=== PATIENT | male | born 1950 | race Caucasian/White ===

== ENCOUNTER 2017-03-09 16:50 | Observation (INO) | payer BC, OTHER, MEDICARE ==
--- NOTE | ~2017-03-09 | HP ---
History And Physical [place] [id number] [facility] [place]. [address] NAME: OMA RAMIREZ SR : 49 STATUS : ADM David PAT#: [id number] AGE: 67 ADM/REG DATE : 03/09/17 MR#: [id number] REPORT SERV DATE: 03/10/17 DICTATED BY: STEPHANIE SANCHEZ DATE: 03/10/17 REPORT STATUS : Draft TRANSCRIBED BY: MADDIE DATE: 03/10/17 DATE OF ADMISSION: 03/09/2017 PRIMARY BALL RACKER: Marcin Thompson M.D. CHIEF COMPLAINT: Chest pain and jaw pain. HISTORY OF PRESENT ILLNESS: This is a 67-year-old male with a history of coronary artery bypass grafting in 1992 and approximately five stents since that time. He had typical anginal pain yesterday afternoon. It occurred without relation to exertion and is described as pain in the gums and jaw from the ears down and as well as brief chest pains on the right and left side described as a "polanco." He left work at that time, and his met him on the road and they came to our Emergency Department. He waited in our ER several hours until he was seen and the pain had mostly resolved after approximately 3 hours. Currently, he is chest pain-free. The patient denies any other recent anginal episodes. He does not have a recurrent refill for nitroglycerin. He has had no recent increased shortness of breath nor has he had any PND or orthopnea. Denies any palpitations or presyncope. Occasional lower extremity edema at the end of the day. The patient's recent medical history is significant for sustaining a fall off a ladder on 03/08/2017 with some muscular injuries on the right neck and also right side of the back. He saw [facility] and they performed multiple x-rays, then started him on the steroid Dosepak. He has been taken two days worth of this dose pack and states some improvement in his musculoskeletal pain. He has been instructed not to exercise at this time and he has been set up to follow up with Physical Therapy. The patient denies any recent fever, cough, or chills. MEDICAL HISTORY: 1. Coronary artery disease, status post CABG in 1992 with a history of stents to the left circumflex, LAD, and most recently in the left main and LAD in 2011. Most recent nuclear stress test was in 02/2015, which indicated no ischemia. 2. Mixed hyperlipidemia. 3. Hypertension. 4. Irritable bowel syndrome. SURGICAL HISTORY: 1. Left hernia repair in 1979. 2. 2010 bilateral knee arthroscopy. 3. Gallbladder removal in 2010 and hernia repair subsequent to that. 4. History of C-spine surgery. HOME MEDICATIONS: Aspirin 81 daily, Plavix 75 daily, Prinivil 10 daily, Medrol Dosepak for five days, Crestor 40 at bedtime. History And Physical [address] [address] NAME: OMA RAMIREZ SR : 49 STATUS : ADM David PAT#: [id number] AGE: 67 ADM/REG DATE : 03/09/17 MR#: [id number] REPORT SERV DATE: 03/10/17 DICTATED BY: STEPHANIE SANCHEZ DATE: 03/10/17 REPORT STATUS : Draft TRANSCRIBED BY: MADDIE DATE: 03/10/17 ALLERGIES: ALLERGY TO ZETIA CAUSES ANGIOEDEMA, IV CONTRAST DYE HAS CAUSED URTICARIA. SOCIAL HISTORY: The patient is . 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 He remains very active. Remote tobacco use. Occasionally has a Mira when he is at a restaurant. Denies illicit drug use. FAMILY HISTORY: Sister of an PA at age 53. Father with an PA in his 70s. Two sons with PA in their 40s. REVIEW OF SYSTEMS: Negative except as indicated above. PHYSICAL EXAMINATION: VITAL SIGNS: Blood pressure 152/68, heart rate 65, temperature 98.1, pulse oximetry 96% room air. BMI 26.7. GENERAL: Well developed, well nourished, in no acute distress HEENT: Anicteric. Normal EOM. Head normocephalic. PERRLA, no xanthelasma. NECK: Supple. No JVD. Carotids normal without bruits. LUNGS: Clear to auscultation bilaterally anterior and posterior. Respirations even and unlabored. CARDIAC: S1, S2 regular rate and rhythm. No murmurs, rubs, or gallops. No chest wall tenderness. ABDOMEN: Normal bowel sounds. Soft and nontender to palpation. No masses or organomegaly. EXTREMITIES: No peripheral edema. DP/PT and radial pulses palpable bilaterally. No clubbing or cyanosis. SKIN: Warm and dry. Normal turgor. No pallor or cyanosis. MUSCULOSKELETAL: Moving all extremities x4. Normal muscle strength. NEURO/PSYCH: Alert and oriented with appropriate affect. LABORATORY DATA: White blood count 23, hemoglobin 14.9, hematocrit 43.3. was 19.4. Sodium 138, potassium 4.2, BUN 17, creatinine 0.9. Troponin less than 0.02 x2. Chest x-ray shows no acute cardiopulmonary processes. EKG is interpreted by myself indicate sinus tachycardia in the first EKG, then sinus rhythm with PACs on second EKG, and then sinus bradycardia on third EKG; there are some nonspecific T- wave changes on all the EKGs. ASSESSMENT AND PLAN: 1. Jaw pain and midsternal chest pain, reminiscent of the patient's typical angina episodes in the past. The patient has a history of coronary artery disease with coronary artery bypass graft and multiple stents. He has been observed overnight in the chest pain observation unit and is negative for acute coronary syndrome. At this time, recommend proceeding with a nuclear stress test to identify any ischemia. If this is low risk with no ischemia noted, I will plan to send him home today and follow up closely with his director of state. Continue current home medications, but add prescription for nitroglycerin p.r.n. chest pain. I have re-educated him on the use of this. History And Physical [address] [address] NAME: OMA RAMIREZ MARIANA ZARCO : 49 STATUS : ADM David PAT#: [id number] AGE: 67 ADM/REG DATE : 03/09/17 MR#: [id number] REPORT SERV DATE: 03/10/17 DICTATED BY: STEPHANIE SANCHEZ DATE: 03/10/17 REPORT STATUS : Draft TRANSCRIBED BY: MADDIE DATE: 03/10/17 2. Coronary artery disease with a history of multiple stents and bypass surgery. Plan as above. Continue aspirin, Plavix, and Crestor. Apparently, the patient has been taken off the beta-sarai in the past because of low heart rates and fatigue. 3. Hypertension, blood pressure in the 140s to 150s, but has not yet started his home medicines. We will continue to monitor. 4. Leukocytosis with negative chest x-ray, no evidence of fever or chills. This is likely secondary to the patient's use of steroid Dosepak. Also plan to check UA. 5. Mixed hyperlipidemia, on statin therapy. We will continue. 6. Recent fall. The patient is currently on steroid Dosepak and plans for physical therapy. DM/MADDIE Stephanie Sanchez NP / [id number] CC: Dayana Duffy, MSN, INSTRUMENT TECHNOLOGIST-BC Marcin Thompson M.D.
[~2017-03-09 16:50] MED LIST: ASAB PO; CRESTOR20 MG PO; CRESTOR40 MG PO; EFFIENT10 PO; FISH OIL300 MG PO; FLEX PO; HALF81 PO; LISINOPRIL PO; LOP25 PO; MICROZIDE PO; NIASPAN500 PO; NITROSTAT0.4 MG SL; NORCO1 TA1 PO; PLAVIX PO; PRIN5 PO; PROMEGA PO; RAN500 PO; TESS PO; ZYRTEC ALLGY10 MG PO; [UNRECOGNIZED DRUG - OTHER]
[2017-03-09] MEDS ORDERED: PRIN10 PO (19:49)
[2017-03-09] MEDS ORDERED: PLAVIX PO (19:49)
[2017-03-09] MEDS ORDERED: HALF81 PO (19:49)
[2017-03-09] MEDS ORDERED: CRESTOR40 MG PO (19:50)
[2017-03-09] MEDS ORDERED: MEDROLPAK4 PO (19:51)
[2017-03-09 20:14] LABS: BASOPHILS 0 %; BASOPHILS ABSOLUTE 0.01 10/3/uL (0.0-0.16); EOSINOPHILS 0 %; HEMATOCRIT 43.3 % (40.0-51.0); HEMOGLOBIN 14.9 g/dL (13.6-17.8); IMMATURE GRANULOCYTES 0.3 %; IMMATURE GRANULOCYTES ABSOLUTE 0.07 10/3/uL (0.0-0.11); LYMPHOCYTES 8.8 %; LYMPHOCYTES ABSOLUTE 2.03 10/3/uL (0.67-4.30); MANUAL DIFF NO %; MEAN CORPUS HGB CONC 34.4 g/dL (32.0-36.0); MEAN CORPUSCULAR HEMOGLOB 30.2 pg (26.0-34.0); MEAN CORPUSCULAR VOLUME 87.7 fL (80-100); MEAN PLATELET VOLUME 9.9 fL (9.2-13.0); MONOCYTES 6.4 %; MONOCYTES ABSOLUTE 1.47 10/3/uL (0.21-1.20); NEUTROPHILS 84.5 %; PLATELET COUNT 313 10/3/uL (150-400); RBC DISTRIBUTION WIDTH 12.7 % (12.0-16.0); RED CELL COUNT 4.94 10/6/uL (4.7-6.1)
[2017-03-09 20:19] LABS: INTERNATIONAL NORMAL RATI 1.1 UNITS (-); PARTIAL THROMBO TIME 25.7 SEC (22.5-37.2); PROTIME (NOT ORD) 13.7 SEC (12.0-14.5)
[2017-03-09 20:29] LABS: BUN (BLOOD UREA NITROGEN) 17 MG/DL (6-23); CALCIUM, SERUM 9.3 MG/DL (8.5-10.4); CHEST PAIN PROFILE TAT 0 Hrs 21 Mins; CHLORIDE, SERUM 99 MMOL/L (96-112); CO2 (CARBON DIOXIDE) 30 MMOL/L (24-34); CREATININE 0.98 MG/DL (0.70-1.30); GFR AFRICAN AMERICAN 91 ML/MIN (>=60); GFR NON AFRICAN AMERICAN 79 ML/MIN (>=60); GLUCOSE, SERUM 224 MG/DL (60-99); POTASSIUM, SERUM 4.2 MMOL/L (3.5-5.3); SODIUM, SERUM 138 MMOL/L (135-148); TROPONIN I <0.02 NG/ML (<0.05)
[2017-03-10 03:29] LABS: TROPONIN I <0.02 NG/ML (<0.05)
[2017-03-10 16:13] LABS: CHOL/HDL RATIO(NOT ORDER) 6.1 (0-5); CHOLESTEROL 242 MG/DL (< 200); HDL CHOLESTEROL 40 MG/DL (> 39); LDL CHOLESTEROL 174 MG/DL (< 130); NON-HDL CHOLESTEROL 202 MG/DL (< 160); TRIGLYCERIDE 141 MG/DL (< 150)
[2017-07-10] MEDS ORDERED: ASAB PO (19:26)
[2017-07-10] MEDS ORDERED: COREG3 PO (19:26)
[2017-07-10] MEDS ORDERED: CRESTOR40 MG PO (19:26)
[2017-07-10] MEDS ORDERED: PLAVIX PO (19:26)
[2017-07-10] MEDS ORDERED: PRIN10 PO (19:26)
[2017-07-10] MEDS ORDERED: MEDROLPAK4 (19:27)
[2017-07-10] MEDS ORDERED: NITROSTAT0.4 MG SL (19:28)
[2017-07-10] MEDS ORDERED: AMOXIL875 MG PO (19:28)
[2017-07-10] MEDS ORDERED: STEROID INJECTION IM (19:31)
[2017-07-11] MEDS ORDERED: IMDUR30 PO (15:46)
[2017-07-11] MEDS ORDERED: GLUCPH PO (15:47)
== END 2017-03-10 19:00 | disposition home or self-care (01) ==
LOC: ER 16:50 → CDU1 21:25 → CDU2 22:02
PROVIDERS: Clinical Nurse Specialist; Emergency Medicine
PROC: 4A023N7 Measurement of Cardiac Sampling and Pressure, Left Heart, Percutaneous Approach (ICD-10-PCS; principal; 2017-03-09)
PROC: B2111ZZ Fluoroscopy of Multiple Coronary Arteries using Low Osmolar Contrast (ICD-10-PCS; 2017-03-09)
PROC: B2151ZZ Fluoroscopy of Left Heart using Low Osmolar Contrast (ICD-10-PCS; 2017-03-09)
DX: I25.110 Atherosclerotic heart disease of native coronary artery with unstable angina pectoris (principal); I25.82 Chronic total occlusion of coronary artery; I10 Essential (primary) hypertension; E78.2 Mixed hyperlipidemia; K58.9 Irritable bowel syndrome, unspecified; Z95.1 Presence of aortocoronary bypass graft; Z87.891 Personal history of nicotine dependence; Z91.041 Radiographic dye allergy status; Z88.8 Allergy status to other drugs, medicaments and biological substances; Z91.81 History of falling; Z96.653 Presence of artificial knee joint, bilateral; Z90.49 Acquired absence of other specified parts of digestive tract; Z82.49 Family history of ischemic heart disease and other diseases of the circulatory system; Z79.82 Long term (current) use of aspirin; Z79.02 Long term (current) use of antithrombotics/antiplatelets; Z79.899 Other long term (current) drug therapy; Z98.890 Other specified postprocedural states
CPT/HCPCS: 71020; 78452; 80048; 80061; 83735; 84484; 85025; 85610; 85730; 93005; 93017; 93459; 96374; 99152; 99153; 99285; A9270-GY; A9502; C1769; C1894; G0378; J0153; J1200; J2250; J3010; Q9967

== ENCOUNTER 2017-03-25 21:25 | Emergency (ER) | payer BC, OTHER, MEDICARE ==
[~2017-03-25 21:25] MED LIST changes: +MEDROLPAK4 PO; +PRIN10 PO
[2017-03-26 02:11] LABS: BASOPHILS 0.2 %; BASOPHILS ABSOLUTE 0.02 10/3/uL (0.0-0.16); EOSINOPHILS ABSOLUTE 0.12 10/3/uL (0.0-0.53); HEMATOCRIT 40.6 % (40.0-51.0); HEMOGLOBIN 13.9 g/dL (13.6-17.8); IMMATURE GRANULOCYTES 0.3 %; IMMATURE GRANULOCYTES ABSOLUTE 0.03 10/3/uL (0.0-0.11); LYMPHOCYTES ABSOLUTE 2.55 10/3/uL (0.67-4.30); MEAN CORPUS HGB CONC 34.2 g/dL (32.0-36.0); MEAN CORPUSCULAR HEMOGLOB 29.6 pg (26.0-34.0); MEAN CORPUSCULAR VOLUME 86.4 fL (80-100); MEAN PLATELET VOLUME 10.3 fL (9.2-13.0); MONOCYTES 11.8 %; MONOCYTES ABSOLUTE 1.37 10/3/uL (0.21-1.20); NEUTROPHILS 64.7 %; NEUTROPHILS ABSOLUTE 7.48 10/3/uL (2.02-8.40); PLATELET COUNT 221 10/3/uL (150-400); RBC DISTRIBUTION WIDTH 12.6 % (12.0-16.0)
[2017-03-26 02:14] LABS: ER CBC TAT 0 Hrs 08 Mins; MANUAL DIFF NO %; WHITE BLOOD CELLS 11.6 10/3/uL (4.5-10.5)
[2017-03-26 02:18] LABS: INTERNATIONAL NORMAL RATI 1.1 UNITS (-); PROTIME (NOT ORD) 14.3 SEC (12.0-14.5)
[2017-03-26 02:30] LABS: ALBUMIN 3.6 G/DL (3.5-5.0); ALKALINE PHOSPHATASE 60 U/L (45-117); BUN (BLOOD UREA NITROGEN) 15 MG/DL (6-23); CALCIUM, SERUM 8.5 MG/DL (8.5-10.4); CHLORIDE, SERUM 108 MMOL/L (96-112); CO2 (CARBON DIOXIDE) 27 MMOL/L (24-34); GFR AFRICAN AMERICAN 101 ML/MIN (>=60); GFR NON AFRICAN AMERICAN 87 ML/MIN (>=60); GLOBULIN 3.5 G/DL (2.5-4.1); POTASSIUM, SERUM 3.6 MMOL/L (3.5-5.3); SGOT(AST) 15 U/L (5-40); SGPT(ALT) 21 U/L (5-65); SODIUM, SERUM 142 MMOL/L (135-148); TOTAL PROTEIN 7.1 G/DL (6.0-8.5)
[2017-03-26 02:31] LABS: GLUCOSE, SERUM 109 MG/DL (60-99)
[2017-03-26 03:52] LABS: PROCALCITONIN <0.05 ng/mL (<0.5)
[2017-07-10] MEDS ORDERED: CRESTOR40 MG PO (19:26)
[2017-07-10] MEDS ORDERED: COREG3 PO (19:26)
[2017-07-10] MEDS ORDERED: ASAB PO (19:26)
[2017-07-10] MEDS ORDERED: PLAVIX PO (19:26)
[2017-07-10] MEDS ORDERED: PRIN10 PO (19:26)
[2017-07-10] MEDS ORDERED: MEDROLPAK4 (19:27)
[2017-07-10] MEDS ORDERED: AMOXIL875 MG PO (19:28)
[2017-07-10] MEDS ORDERED: NITROSTAT0.4 MG SL (19:28)
[2017-07-10] MEDS ORDERED: STEROID INJECTION IM (19:31)
[2017-07-11] MEDS ORDERED: IMDUR30 PO (15:46)
[2017-07-11] MEDS ORDERED: GLUCPH PO (15:47)
== END 2017-03-26 04:05 | disposition home or self-care (01) ==
LOC: ER 21:25
PROVIDERS: Nurse Practitioner
DX: L03.115 Cellulitis of right lower limb (principal); I25.2 Old myocardial infarction; I10 Essential (primary) hypertension; Z95.5 Presence of coronary angioplasty implant and graft; Z90.49 Acquired absence of other specified parts of digestive tract; Z91.041 Radiographic dye allergy status; Z88.8 Allergy status to other drugs, medicaments and biological substances; Z79.82 Long term (current) use of aspirin; Z79.899 Other long term (current) drug therapy
CPT/HCPCS: 80053; 83605; 84145; 85025; 85610; 85730; 87040; 93971; 99284; A9270-GY

== ENCOUNTER 2017-08-10 10:00 | Inpatient (IN) | payer BC, OTHER, MEDICARE ==
[~2017-08-10] VITALS: Ht 170.2 cm; Wt 77.1 kg
--- NOTE | ~2017-08-10 | HP ---
History And Physical [address] [place]. [address] NAME: OMA RAMIREZ : 49 STATUS : ADM David PAT#: [id number] AGE: 67 ADM/REG DATE : 08/10/17 MR#: [id number] REPORT SERV DATE: 08/10/17 DICTATED BY: EDA DAS DATE: 08/10/17 REPORT STATUS : Draft TRANSCRIBED BY: MODEmir DATE: 08/10/17 DATE OF ADMISSION: 08/10/2017 CHIEF COMPLAINT: Right-sided CVA pain and fever. HISTORY OF PRESENT ILLNESS: The patient is a very pleasant 67-year-old white male. He reports about 24 hours ago, he developed right-sided CVA pain, shaking, chills, and fever to 102.5. He has had diminished appetite but no nausea or vomiting. No real abdominal pain. He had some burning dysuria which was present for about 24 hours. He has history of a kidney stone in the past but not a significant history of urinary tract infections. PAST MEDICAL HISTORY: 1. CAD with a history of previous coronary artery bypass grafting in 1992 and subsequent stents x5. 2. Hypertension. 3. Hyperlipidemia. 4. Irritable bowel. PAST SURGICAL HISTORY: 1. Hernia repair x2. 2. Bilateral total knee arthroplasties. 3. CCK. 4. Left C-spine surgery. 5. Coronary artery bypass grafting. 6. Multiple stents, cardiac. ALLERGIES: ZETIA AND IV DYE. HOME MEDICATIONS: Reviewed and attached. SOCIAL HISTORY: No tobacco or alcohol use. He quit smoking about 25 years ago. FAMILY HISTORY: Positive for ovarian cancer in his mother. There is some CAD in his father and a sibling and also some prostate cancer. REVIEW OF SYSTEMS: A 10-point review of systems obtained. Pertinent positives mentioned in the HPI. PHYSICAL EXAMINATION: VITAL SIGNS: Current temperature 99.2, temperature 98.7, pulse 77, respiratory rate 19, sats 98%, and BP 154/66. GENERAL: A well-developed white male in no apparent distress. HEENT: Normocephalic and atraumatic. Throat is clear. NECK: Supple. HEART: Regular rate and rhythm. LUNGS: Grossly clear with good symmetrical air entry. History And Physical [address] [place]. [address] NAME: OMA RAMIREZ DOB: [birth year] STATUS : ADM David PAT#: [id number] AGE: 67 ADM/REG DATE : 08/10/17 MR#: [id number] REPORT SERV DATE: 08/10/17 DICTATED BY: EDA DAS DATE: 08/10/17 REPORT STATUS : Draft TRANSCRIBED BY: MADDIE DATE: 08/10/17 ABDOMEN: Soft, nontender, and nondistended. Right-sided CVA is noted on palpation. EXTREMITIES: Warm and dry. SKIN: Intact without obvious rash or lesion. PSYCHIATRIC: Mood and affect appropriate. NEUROLOGIC: Symmetrical strength and tone in all four extremities. LABORATORY AND X-RAY: CBC is normal other than a white count of 18.2. Urinalysis shows 107 whites, 5 reds, and moderate leukocyte esterase. Basic metabolic panel is normal. Glucose is 172. Albumin is 2.6. LFTs are normal. Lactate is 1.8. CT of the abdomen and pelvis shows a stable 2-mm right upper pole nonobstructing calculus. There is no hydro or inflammation and he has a fatty liver. Chest x-ray is negative. ASSESSMENT/PLAN: 1. Urinary tract infection/likely pyelonephritis. We will place on observation, give IV fluids overnight, IV Rocephin. Culture blood and urine and check procalcitonin. Hopefully tomorrow, if his pain is improved, he could potentially go home. We will provide Tylenol p.r.n. for pain, he has p.r.n. antiemetics should he need it. 2. Hypertension, continue home medications. 3. History of coronary artery disease, status post coronary artery bypass grafting, continue home medications. 4. Deep venous thrombosis prophylaxis with subcu Lovenox. 5. Mildly elevated glucose, we will follow up in the morning on his fasting sugar. If he still has an elevated glucose, may check an A1c. 6. Disposition pending above. JEFF/MADDIE Eda Das M.D. / [id number] CC: Amador Esteban MD
--- NOTE | ~2017-08-10 | DS ---
Discharge Summary [facility] [address] [place]. [address] NAME: OMA RAMIREZ : 48 STATUS : DIS David PAT#: [id number] AGE: 67 ADM/REG DATE : 08/10/17 MR#: [id number] REPORT SERV DATE: 08/13/17 DICTATED BY: AMADOR BELTRÁN DATE: 08/12/17 REPORT STATUS : Draft TRANSCRIBED BY: MADDIE DATE: 08/12/17 ADMISSION DATE: 08/10/2017 DISCHARGE DATE: 08/12/2017 DISCHARGE DIAGNOSES: 1. Acute pyelonephritis. 2. Urinary tract infection due to Klebsiella oxytoca sepsis. 3. Chronic kidney disease stage 3 and diabetes mellitus type 2. 4. Hypertension. 5. History of coronary artery disease, status post CABG and cardiac stenting. 6. Remote history of nephrolithiasis. 7. Hepatic steatosis. IMAGIN. CT abdomen and pelvis, impression:. a. No convincing cause of right back/flank pain identified. Questionable 2 mm right upper pole nonobstructing calculus. No hydronephrosis or evidence of perinephric inflammation bilaterally. No hydroureter or ureteral calculi. b. No suspicious osseous lesions or acute fractures. , no right lower rib fractures. c. Diffuse hepatic steatosis. 2. Renal ultrasound, impression:. a. Normal renal ultrasound. b. Echogenic liver compatible with steatosis. HISTORY OF PRESENT ILLNESS: For detailed HPI, please refer to Dr. Sari Campbell' dictation on 08/10/2017. In brief, this is a 67-year-old male who presented to the emergency department with right flank pain, chills, and fever of 102.5. PHYSICAL EXAMINATION: VITAL SIGNS: On presentation, temperature was 99.2, respiratory rate was 19, pulse was 77, blood pressure was 154/66. Physical exam significant for right CVA tenderness. CT of the abdomen showed stable 2 mm right upper pole nonobstructing calculus. No associated hydronephrosis or hydroureter. LABORATORY DATA: WBC 18.2. Urinalysis shows 107 white cells, moderate leukocyte esterase, bacteria present. An assessment of sepsis due to acute pyelonephritis was made in the ER. The patient was admitted to the Hospitalist Service. HOSPITAL COURSE: 1. Sepsis due to acute pyelonephritis. Urine and blood cultures were obtained in the ER. The patient was started on broad-spectrum IV antibiotics. A renal ultrasound showed no evidence of obstructing stones. Kidneys were essentially normal. Detailed report as Discharge Summary [address] [place]. [address] NAME: OMA RAMIREZ : 49 STATUS : DIS David PAT#: [id number] AGE: 67 ADM/REG DATE : 08/10/17 MR#: [id number] REPORT SERV DATE: 08/13/17 DICTATED BY: AMADOR BELTRÁN DATE: 08/12/17 REPORT STATUS : Draft TRANSCRIBED BY: MADDIE DATE: 08/12/17 dictated above. White cell count gradually trended down from 18,000 to 10,000. The patient's urine culture was positive for Klebsiella oxytoca. The patient was transitioned to p.o. antibiotics prior to discharge. The patient was advised to continue p.o. antibiotics and follow up with primary care physician within one to two weeks of discharge. The patient was also advised to continue follow up with Urology as an outpatient. 2. Diabetes mellitus type 2. A1c 6.8. The patient's blood glucose was controlled with subcu insulin. At the time of discharge, the patient was advised to continue oral hypoglycemics and follow up with primary care physician. 3. Chronic kidney disease stage 3. The patient's creatinine on presentation was 1.3. The patient's known baseline is 1.1 to 1.4. Prior to discharge, the patient's creatinine trended down to 0.86. The patient was advised to continue to follow up with primary care physician. 4. History of coronary artery disease, status post CABG and status post PCI. No evidence of chest pain. No EKG changes during this admission. The patient was advised to continue aspirin, beta-sarai, statin, Imdur, and Plavix as prescribed by his primary scale balancer. The patient was advised to continue to follow up with primary scale balancer. DISCHARGE MEDICATIONS: 1. Levofloxacin 750 mg p.o. daily. 2. Aspirin 81 mg p.o. daily. 3. Coreg 3.125 mg p.o. b.i.d. 4. Plavix 75 mg p.o. daily. 5. Imdur 30 mg p.o. daily. 6. Lisinopril 10 mg p.o. daily. 7. Lovastatin 40 mg p.o. daily. 8. Nitroglycerin 0.4 mg p.o. daily. 9. Glucophage 500 mg p.o. at bedtime. Greater than 35 minutes was used to prepare this patient's discharge, reconcile medications, advise the patient on discharge plans and followups. IOO/MODL Amador Beltrán MD / [id number] CC: MD Ashley Benson MD
[~2017-08-10 10:00] MED LIST changes: +AMOXIL875 MG PO; +COREG3 PO; +GLUCPH PO; +IMDUR30 PO; +MEDROLPAK4; +STEROID INJECTION IM
[2017-08-10 10:57] LABS: BASOPHILS 0.1 %; BASOPHILS ABSOLUTE 0.01 10/3/uL (0.0-0.16); EOSINOPHILS 0.1 %; EOSINOPHILS ABSOLUTE 0.01 10/3/uL (0.0-0.53); ER CBC TAT 0 Hrs 08 Mins; HEMOGLOBIN 15.7 g/dL (13.6-17.8); IMMATURE GRANULOCYTES 0.5 %; IMMATURE GRANULOCYTES ABSOLUTE 0.09 10/3/uL (0.0-0.11); LYMPHOCYTES 9.7 %; LYMPHOCYTES ABSOLUTE 1.77 10/3/uL (0.67-4.30); MANUAL DIFF NO %; MEAN CORPUS HGB CONC 34.1 g/dL (32.0-36.0); MEAN CORPUSCULAR HEMOGLOB 29.6 pg (26.0-34.0); MEAN CORPUSCULAR VOLUME 86.8 fL (80-100); MEAN PLATELET VOLUME 9.6 fL (9.2-13.0); MONOCYTES 5.3 %; MONOCYTES ABSOLUTE 0.96 10/3/uL (0.21-1.20); NEUTROPHILS 84.3 %; NEUTROPHILS ABSOLUTE 15.36 10/3/uL (2.02-8.40); PLATELET COUNT 250 10/3/uL (150-400); RBC DISTRIBUTION WIDTH 12.8 % (12.0-16.0); WHITE BLOOD CELLS 18.2 10/3/uL (4.5-10.5)
[2017-08-10 11:06] LABS: ASCORBIC ACID (UR NOT ORDER) NEG (NEG); BILIRUBIN, URINE NEGATIVE (NEG); KETONE, URINE NEGATIVE (NEG); LEUKOCYTE ESTERASE(NOT OR MOD (NEG); NITRITE (URINE) NEG (NEG); WBC (NOT ORDERED) (RFLEX) 107 (0-5)
[2017-08-10 11:11] LABS: A/G RATIO 0.9 (0.7-1.9); ALKALINE PHOSPHATASE 67 U/L (45-117); BUN (BLOOD UREA NITROGEN) 13 MG/DL (6-23); CALCIUM, SERUM 9.6 MG/DL (8.5-10.4); CHLORIDE, SERUM 100 MMOL/L (96-112); CO2 (CARBON DIOXIDE) 28 MMOL/L (24-34); CREATININE 1.04 MG/DL (0.70-1.30); GFR AFRICAN AMERICAN 85 ML/MIN (>=60); GFR NON AFRICAN AMERICAN 73 ML/MIN (>=60); GLOBULIN 4.4 G/DL (2.5-4.1); GLUCOSE, SERUM 172 MG/DL (60-99); POTASSIUM, SERUM 3.6 MMOL/L (3.5-5.3); SGOT(AST) 17 U/L (5-40); SGPT(ALT) 27 U/L (5-65); SODIUM, SERUM 135 MMOL/L (135-148); TOTAL BILIRUBIN 2.6 MG/DL (0-1.2); TOTAL PROTEIN 8.4 G/DL (6.0-8.5)
[2017-08-10 11:15] LABS: LACTATE 1.8 MMOL/L (0.3-2.4)
[2017-08-10] MEDS ORDERED: ADVIL PO (12:45)
[2017-08-10] MEDS ORDERED: ACET500CAP PO (12:45)
[2017-08-10 18:32] LABS: PROCALCITONIN 0.69 ng/mL (<0.5)
[2017-08-11 05:47] LABS: CHLORIDE, SERUM 106 MMOL/L (96-112); GFR AFRICAN AMERICAN 65 ML/MIN (>=60); GFR NON AFRICAN AMERICAN 56 ML/MIN (>=60); POTASSIUM, SERUM 4.3 MMOL/L (3.5-5.3); SODIUM, SERUM 136 MMOL/L (135-148)
[2017-08-11 05:50] LABS: BUN (BLOOD UREA NITROGEN) 22 MG/DL (6-23); CALCIUM, SERUM 7.9 MG/DL (8.5-10.4); CO2 (CARBON DIOXIDE) 23 MMOL/L (24-34); GLUCOSE, SERUM 96 MG/DL (60-99)
[2017-08-11 06:26] LABS: BASOPHILS 0.1 %; BASOPHILS ABSOLUTE 0.02 10/3/uL (0.0-0.16); EOSINOPHILS 0.4 %; EOSINOPHILS ABSOLUTE 0.07 10/3/uL (0.0-0.53); IMMATURE GRANULOCYTES 0.3 %; IMMATURE GRANULOCYTES ABSOLUTE 0.06 10/3/uL (0.0-0.11); LYMPHOCYTES 10.5 %; MEAN CORPUS HGB CONC 33.2 g/dL (32.0-36.0); MEAN CORPUSCULAR HEMOGLOB 28.8 pg (26.0-34.0); MEAN CORPUSCULAR VOLUME 86.8 fL (80-100); MEAN PLATELET VOLUME 10.1 fL (9.2-13.0); MONOCYTES 12.4 %; MONOCYTES ABSOLUTE 2.12 10/3/uL (0.21-1.20); NEUTROPHILS 76.3 %; NEUTROPHILS ABSOLUTE 13.08 10/3/uL (2.02-8.40); PLATELET COUNT 197 10/3/uL (150-400); RBC DISTRIBUTION WIDTH 13.2 % (12.0-16.0); WHITE BLOOD CELLS 17.2 10/3/uL (4.5-10.5)
[2017-08-11 06:34] LABS: HEMATOCRIT 36.1 % (40.0-51.0); MANUAL DIFF NO %; RED CELL COUNT 4.16 10/6/uL (4.7-6.1)
[2017-08-12 03:27] LABS: BASOPHILS 0.1 %; BASOPHILS ABSOLUTE 0.01 10/3/uL (0.0-0.16); EOSINOPHILS 1.5 %; EOSINOPHILS ABSOLUTE 0.16 10/3/uL (0.0-0.53); HEMATOCRIT 36.2 % (40.0-51.0); HEMOGLOBIN 11.9 g/dL (13.6-17.8); IMMATURE GRANULOCYTES 0.3 %; IMMATURE GRANULOCYTES ABSOLUTE 0.03 10/3/uL (0.0-0.11); LYMPHOCYTES 22.1 %; LYMPHOCYTES ABSOLUTE 2.33 10/3/uL (0.67-4.30); MEAN CORPUS HGB CONC 32.9 g/dL (32.0-36.0); MEAN CORPUSCULAR HEMOGLOB 28.7 pg (26.0-34.0); MEAN CORPUSCULAR VOLUME 87.4 fL (80-100); MEAN PLATELET VOLUME 10.1 fL (9.2-13.0); MONOCYTES 13.3 %; NEUTROPHILS 62.7 %; NEUTROPHILS ABSOLUTE 6.62 10/3/uL (2.02-8.40); PLATELET COUNT 181 10/3/uL (150-400); RBC DISTRIBUTION WIDTH 13.1 % (12.0-16.0); RED CELL COUNT 4.14 10/6/uL (4.7-6.1); WHITE BLOOD CELLS 10.6 10/3/uL (4.5-10.5)
[2017-08-12 03:36] LABS: MANUAL DIFF NO %
[2017-08-12 03:50] LABS: ALBUMIN 2.5 G/DL (3.5-5.0); BUN (BLOOD UREA NITROGEN) 16 MG/DL (6-23); CALCIUM, SERUM 7.5 MG/DL (8.5-10.4); CHLORIDE, SERUM 105 MMOL/L (96-112); CO2 (CARBON DIOXIDE) 26 MMOL/L (24-34); CREATININE 0.89 MG/DL (0.70-1.30); GFR AFRICAN AMERICAN 102 ML/MIN (>=60); GFR NON AFRICAN AMERICAN 88 ML/MIN (>=60); GLUCOSE, SERUM 91 MG/DL (60-99); PHOSPHORUS, SERUM 1.7 MG/DL (2.5-4.5); SODIUM, SERUM 136 MMOL/L (135-148)
[2017-08-12] MEDS ORDERED: LEVAQUIN750 MG PO (12:26)
== END 2017-08-12 13:06 | disposition home or self-care (01) | DRG 872 ==
LOC: ENRESERVDT → ENRESERVTM → ENRESERV → ER 10:00 → CDU1 14:25 → CDU2 14:25
PROVIDERS: Hospitalist; Internal Medicine; Nurse Practitioner
DX: A41.9 Sepsis, unspecified organism (principal); N10 Acute pyelonephritis; E11.22 Type 2 diabetes mellitus with diabetic chronic kidney disease; I95.9 Hypotension, unspecified; K76.0 Fatty (change of) liver, not elsewhere classified; N18.3 Chronic kidney disease, stage 3 (moderate); I12.9 Hypertensive chronic kidney disease with stage 1 through stage 4 chronic kidney disease, or unspecified chronic kidney disease; I25.10 Atherosclerotic heart disease of native coronary artery without angina pectoris; E11.65 Type 2 diabetes mellitus with hyperglycemia; K58.9 Irritable bowel syndrome, unspecified; B96.1 Klebsiella pneumoniae [K. pneumoniae] as the cause of diseases classified elsewhere; Z79.82 Long term (current) use of aspirin; Z79.02 Long term (current) use of antithrombotics/antiplatelets; Z79.84 Long term (current) use of oral hypoglycemic drugs; Z79.899 Other long term (current) drug therapy; Z87.891 Personal history of nicotine dependence; Z95.1 Presence of aortocoronary bypass graft; Z87.442 Personal history of urinary calculi; Z98.61 Coronary angioplasty status; Z88.8 Allergy status to other drugs, medicaments and biological substances; Z91.041 Radiographic dye allergy status
CPT/HCPCS: 71010; 74176; 76775; 80048; 80053; 80069; 81001; 82962; 83605; 83690; 83735; 84145; 85025; 87040; 87077; 87086; 87186; 96374; 96375; 99285; A9270-GY; J1170; J2405